=== PATIENT | female | born 1965 ===

== ENCOUNTER 2025-04-22 09:01 | Outpatient (OUT) | payer BC, SELFPAY ==
--- NOTE | 2025-04-22 | XR_ITS ---
The [address] [address] Patient Name: LANCE CROOK MRN: [id number] date: 1965 Sex: F Assigned Patient Location: [facility] Current Patient Location: [facility] Accession/Order Number: [id number] Exam Date: 04/22/2025 11:20 Report Date: 04/22/2025 11:55 At the request of: ADAL MCDERMOTT DO Procedure: XR shoulder LT min 2V LEFT SHOULDER - 3 views CLINICAL HISTORY: Follow-up Fracture Of Glenoid Cavity and Neck Of Scapula. Pain and decreased range of motion COMPARISON: None AP, Y and Grashey views were obtained. There is osteopenia. There is a cleft and hypertrophy at the inferior aspect of the glenoid which may be the reported fracture. The bony structures are otherwise intact. No dislocation is seen. There is minimal hypertrophy at the acromioclavicular joint and sclerosis of greater tuberosity. There are no significant soft tissue abnormalities. XR/XR shoulder LT min 2V IMPRESSION: BONY CHANGES AT THE INFERIOR GLENOID WHICH MAY RELATE TO THE REPORTED FRACTURE. THERE ARE NO PRIORS FOR COMPARISON. OSTEOPENIA AND MINOR DEGENERATIVE CHANGE. Impression dictated by: Malika Sethi M.D. 04/22/2025 11:55 AM Dictation Location: [place] [address] Electronically authenticated by: [id number] Y Date: 04/22/2025 11:55
--- OUTSIDE RECORDS SUMMARY | 2025-04-22 09:04 | XMS_ITS | Clinical Summary ---
Author Organization [facility] tem Address [facility] [address] [place] [address] Care Team Providers Care Chipping Machine Operator Name Role Phone Services, [facility] Primary Care Provider Allergies No known active allergies Medications MedicationSigDispense QuantityRefillsLast FilledStart DateEnd DateStatus spironolacton-hydroCHLOROthiaz (ALDACTAZIDE) 25-25 mg per tablet Take 1 tablet by mouth in the morning.2Active fluticasone propionate (FLONASE) 50 mcg/actuation nasal spray Administer 2 sprays into each nostril as needed for allergies or rhinitis. 08/31/2021ctive atorvastatin (LIPITOR) 10 mg tablet Indications:hyperlipidemiaTake 1 tablet (10 mg total) by mouth nightly Indications: excessive fat in the blood.Active Active Problems ProblemNoted DateDiagnosed NoznCybfybvwkvs49/05/2022 Encounters DateTypeDepartmentCare LooySapvjrtjrud68/15/2025 12:13 AM EDT - 03/27/2025 5:51 AM EDTEmergency [facility] [address] [place] [address] Renetta Barroso MD Anterior shoulder dislocation, left, initial encounter (Primary Dx); Bankart lesion of left shoulder, initial encounter Discharge Disposition: Home03/26/2025Travelfrom Last 3 Months Family History Medical HistoryRelationNameCommentsHypertensionBrotherSleep apneaBrotherSleep apneaDaughterAlcohol abuseFatherCirrhosisFatherCOPDMotherCoronary artery disease MotherHeart attackMotherHeart diseaseMotherHypertensionMotherBreast cancerNeg Hx RelationNameStatusCommentsBrotherDaughterAliveFatherDeceasedMotherAlive Social History Tobacco UseTypesPacks/DayYears UsedDateSmoking Tobacco: NeverSmokeless Tobacco: NeverAlcohol UseStandard Drinks/WeekCommentsNot Currently0 (1 standard drink = 0.6 oz pure alcohol)ChildcareAnswerDate YuzacfreNonlqbojyQkertbu07/12/2019 EmploymentAnswerDate VgqvyvfwDockgdsksdZxljhug88/12/2019Hunger ScreeningAnswer Date RecordedWithin the past 12 months we worried whether our food would run out before we got money to buy more.Never True03/26/2025Within the past 12 months the food we bought just didn't last and we didn't have money to get more.Never True03/26/2025Purpose - LifeAnswerDate RecordedPurpose and direction in life Apsyuqy72/11/2021CommentsNoSex and Gender InformationValueDate Recorded Sex Assigned at BirthNot on fileLegal XkzHmqgxb92/06/2015 11:39 AM EDTGender IdentityNot on fileSexual OrientationNot on file Last Filed Vital Signs Vital SignReadingTime TakenCommentsBlood Jymuxxbx792/6803/27/2025 4:45 AM EDT Obljh251103/27/2025 5:37 AM QTMUwbsnjhlkjg65.8 ??C (98.2 ??F)03/27/2025 12:14 AM EDTRespiratory Iaby7171 5:37 AM EDTOxygen Oykjqmrqdc67%03/27/2025 5:37 AM EDTInhaled Oxygen Concentration--Hjlpqu83.9 kg (174 lb)03/26/2025 11:46 PM GXGPghaas620.9 cm (4' 11 )03/26/2025 11:46 PM EDTBody Mass Index35.141 11:46 PM EDT Plan of Treatment Health MaintenanceDue DateLast DoneCommentsDepression Wprnamsig03/11/1979Adult BMI Follow Up Plan1985DTaP,Tdap and Td Vaccines (1 - Tdap)12/11/1986Zoster (Shingles) Vaccine (1 of 2)2017COVID-19 Vaccine ( - season) 505/09/2020, 09/23/2020Influenza Dikkton13/Pap Smear /, 05/05/2022dult BMI Miwxdkacl54Tobacco Adogcreal19 Medical Devices Not on file Procedures Procedure NamePriorityDate/TimeAssociated DiagnosisCommentsCT SHOULDER LT WO DHHMDOJB78/15/2025 5:09 AM EDT PM ED PROCEDURAL YJVXNRSTDclxbpf73/15/2025 4:30 AM EDT XR SHOULDER LT 1 XJFGUK1103/27/2025 4:27 AM EDT XR SHOULDER LT MIN 2 LHHITJZ83/15/2025 1:08 AM EDT XR HUMERUS LT MIN 2 HUQJDMU59/15/2025 1:06 AM EDT PM ED CRITICAL DSZBVtfdjjd55/15/2025 12:25 AM EDT PAP IGXRGTqblvru71/23/2022 6:22 AM EST Encounter for screening for malignant neoplasm of cervix Encounter for screening for human papillomavirus (HPV) from Last 3 Months or Most Recently Relevant to Health Maintenance Results * CT shoulder left without contrast (03/27/2025 5:09 AM EDT)Anatomical Region LateralityModalityMSK, Upper Extremities, Shoulder, MSK CoveraLeftComputed TomographySpecimen (Source)Anatomical Location / LateralityCollection Method / VolumeCollection TimeReceived Time03/27/2025 5:11 AM EDT Narrative 03/27/2025 5:16 AM EDT History: Dislocation Exam/Technique: ??Thin axial images of the left shoulder were obtained. Study was supplemented by sagittal and coronal reconstructed images. Automated exposure control was utilized. Comparison: ??Comparison made to a plain film examination performed earlier today Findings: ??The humeral head is now in normal anatomic position. No dislocation is seen. There is fragmentation of the inferior aspect of the glenoid consistent with a Bankart fracture. Irregularity of the humeral head is consistent with a Hill- Sachs deformity. The remainder the visualized osseous structures are intact. IMPRESSION: ?? * ??Fragmentation of the inferior aspect of the glenoid consistent with a Bankart fracture * ??Irregularity of the humeral head consistent with a Hill-Sachs deformity, the age of which is uncertain. * ??No evidence of residual dislocation. ?? Finalized by Elijah Sparrow MD on 03/27/2025 5:16 AM Procedure Note Elijah Sparrow MD - 03/27/2025 History: Dislocation Exam/Technique: Thin axial images of the left shoulder were obtained.Study was supplemented by sagittal and coronal reconstructed images.Automated exposure control was utilized. Comparison: Comparison made to a plain film examination performed earliertoday Findings: The humeral head is now in normal anatomic position. Nodislocation is seen. There is fragmentation of the inferior aspect of the glenoid consistentwith a Bankart fracture. Irregularity of the humeral head is consistentwith a Hill- Sachs deformity. The remainder the visualized osseousstructures are intact. IMPRESSION: * Fragmentation of the inferior aspect of the glenoid consistent with aBankart fracture * Irregularity of the humeral head consistent with a Hill-Sachsdeformity, the age of which is uncertain. * No evidence of residual dislocation. Finalized by Elijah Sparrow MD on 03/27/2025 5:16 AM Authorizing ProviderResult TypeResult StatusStacy Dharmesh MONTANO CT ORDERABLESFinal Result * Procedural Sedation (03/27/2025 4:30 AM EDT) Narrative Renetta Barroso MD - 03/27/2025 4:30 AM EDT Renetta Barroso MD 03/29/2025 2:42 PM Procedural Sedation Date/Time: 03/27/2025 4:30 AM Performed by: Renetta Barroso MD Authorized by: Renetta Barroso MD ?? Written consent obtained?: Yes ?? Risks and benefits: Risks, benefits, complications and alternatives were discussed ?? Consent given by: ??Patient Patient states understanding of procedure being performed: Yes ?? Patient's understanding of procedure matches consent: Yes ?? Procedure consent matches procedure scheduled: Yes ?? Relevant documents present and verified: Yes ?? Test results available and properly labeled: Yes ?? Site marked: No ?? Imaging studies available: Yes ?? Patient identity confirmed: ??Verbally with patient and arm band Time out: Immediately prior to the procedure a time out was called ?? Consent: ??Consent given by: ??Patient Indications: Sedation type: moderate (conscious) sedation Pre-sedation assessment: ??ASA classification: class 2 - patient with mild systemic disease ?Mallampati score: ??II - soft palate, uvula, fauces visible Procedure details (see MAR for exact dosages): ??Sedation start time: ??03/27/2025 4:13 AM ??Preoxygenation: ??Nasal cannula ??Sedation: ??Etomidate ??Analgesia: ??None ??Intra-procedure monitoring: ??Blood pressure monitoring, traffic monitor specialist, continuous capnometry, continuous pulse oximetry, frequent LOC assessments and frequent vital sign checks ??Intra-procedure events: none ?Sedation end time: ??03/27/2025 4:33 AM ??Total sedation time (minutes): ??20 Post-procedure details: ??Attendance: Constant attendance by certified staff until patient recovered ?Patient tolerance: ??Tolerated well, no immediate complications Authorizing ProviderResult TypeResult StatusStacy Dharmesh HDZNURSING TASKSFinal Result * X-ray shoulder left 1 view (03/27/2025 4:27 AM EDT)Anatomical RegionLaterality ModalityMSK, Upper Extremities, ShoulderLeftComputed RadiographySpecimen (Source)Anatomical Location / LateralityCollection Method / VolumeCollection TimeReceived Time03/27/2025 4:32 AM EDT Narrative 03/27/2025 4:37 AM EDT XR SHOULDER LT 1 VW HISTORY: Left shoulder pain, dislocation COMPARISON: 03/27/2025 TECHNIQUE: Single view of the left shoulder obtained. IMPRESSION: Interval reduction of anterior dislocation of humeral head. Mild inferior subluxation of the humeral head. Irregularity of the greater tuberosity of the humerus which may represent a Hill-Sachs fracture. Approved by Resident Rebekah Howell DO ??on 03/27/2025 4:32 AM Elijah Dolan MD have personally reviewed the image(s) and agree with and/or edited the report Finalized by Elijah Sparrow MD on 03/27/2025 4:37 AM Procedure Note Elijah Sparrow MD - 03/27/2025 XR SHOULDER LT 1 VW HISTORY: Left shoulder pain, dislocation COMPARISON: 03/27/2025 TECHNIQUE: Single view of the left shoulder obtained. IMPRESSION: Interval reduction of anterior dislocation of humeral head. Mild inferior subluxation of the humeral head. Irregularity of the greater tuberosity ofthe humerus which may represent a Hill-Sachs fracture. Approved by Resident Rebekah Howell DO on 03/27/2025 4:32 AM Elijah Dolan MD have personally reviewed the image(s) and agreewith and/or edited the report Finalized by Elijah Sparrow MD on 03/27/2025 4:37 AM Authorizing ProviderResult TypeResult StatusStacy Dharmesh [facility] DIAGNOSTIC IMAGING ORDERABLESFinal Result * X-ray shoulder left minimum 2 views (03/27/2025 1:08 AM EDT)Anatomical Region LateralityModalityMSK, Upper Extremities, ShoulderLeftComputed Radiography Specimen (Source)Anatomical Location / LateralityCollection Method / Volume Collection TimeReceived Time03/27/2025 1:29 AM EDT Narrative 03/27/2025 1:30 AM EDT History: Pain after falling Exam/Technique: ??2 views of the left shoulder were obtained. Comparison: ??11/03/2015 Findings: ??There is anterior dislocation of the humeral head. A definite fracture is not seen. Theremainder the visualized osseous structures are intact. IMPRESSION: ??Anterior dislocation of the left humeral head. ?? Finalized by Elijah Sparrow MD on 03/27/2025 1:30 AM Procedure Note Elijah Sparrow MD - 03/27/2025 History: Pain after falling Exam/Technique: 2 views of the left shoulder were obtained. Comparison: 11/03/2015 Findings: There is anterior dislocation of the humeral head. A definitefracture is not seen. The remainder the visualized osseous structures areintact. IMPRESSION: Anterior dislocation of the left humeral head. Finalized by Elijah Sparrow MD on 03/27/2025 1:30 AM Authorizing ProviderResult TypeResult StatusStacy [facility] DIAGNOSTIC IMAGING ORDERABLESFinal Result * X-ray humerus left minimum 2 views (03/27/2025 1:06 AM EDT)Anatomical Region LateralityModalityUpper Extremities, MSK, HumerusLeftComputed Radiography Specimen (Source)Anatomical Location / LateralityCollection Method / Volume Collection TimeReceived Time03/27/2025 1:22 AM EDT Narrative 03/27/2025 1:28 AM EDT XR HUMERUS LT MIN 2 VWS HISTORY: Fall, left shoulder pain COMPARISON: 11/03/2015 TECHNIQUE: 2 views of left humerus obtained. FINDINGS: Anterior inferior displacement of the humeral head. No acute fracture. The osseous structures are well mineralized. IMPRESSION: ?? Anterior dislocation of the humeral head. No convincing acute fracture. Approved by Resident Rebekah Howell DO ??on 03/27/2025 1:22 AM Elijah Dolan MD have personally reviewed the image(s) and agree with and/or edited the report Finalized by Elijah Sparrow MD on 03/27/2025 1:28 AM Procedure Note Elijah Sparrow MD - 03/27/2025 XR HUMERUS LT MIN 2 VWS HISTORY: Fall, left shoulder pain COMPARISON: 11/03/2015 TECHNIQUE: 2 views of left humerus obtained. FINDINGS: Anterior inferior displacement of the humeral head. No acute fracture. The osseous structures are well mineralized. IMPRESSION: Anterior dislocation of the humeral head. No convincing acute fracture. Approved by Resident Rebekah Howell DO on 03/27/2025 1:22 AM I, Elijah Sparrow MD have personally reviewed the image(s) and agreewith and/or edited the report Finalized by Elijah Sparrow MD on 03/27/2025 1:28 AM Authorizing ProviderResult TypeResult StatusSttarik Barroso MDIMG DIAGNOSTIC IMAGING ORDERABLESFinal Result * Critical Care (03/27/2025 12:25 AM EDT) Renetta Green MD - 03/27/2025 12:25 AM EDT Renetta Barroso MD 03/29/2025 2:42 PM Critical Care Performed by: Renetta Barroso MD Authorized by: Renetta Barroso MD ?? Critical care provider statement: ??Critical care time (minutes): ??30 ??Critical care start time: ??03/27/2025 4:00 AM ??Critical care end time: ??03/27/2025 4:30 AM ??Critical care time was exclusive of: ??Separately billable procedures and treating other patients ??I assumed direction of critical care for this patient from another provider in my specialty: yes ?? Authorizing ProviderResult TypeResult StatusSttarik Barroso MDPROCEDURE/MINOR SURGICAL ORDERABLESFinal Result * Pap Smear (05/05/2022 6:22 AM EST)Specimen (Source)Anatomical Location / LateralityCollection Method / VolumeCollection TimeReceived Time05/05/2022 6:22 AM EST05/05/2022 6:23 AM EST Narrative COPATH - 05/18/2022 10:31 AM EST [facility] ? [address] [facility] ? [place] [address] ? Gynecologic Cytology Consultation ? Patient Name:EVELINA CROOK:1965 (Age: 56)Gender:FTaken:2Reported:2Physician(s):Nasim Luna M.D. ([phone])Copy To: Rec. #:[id number]: #[id number] Final Cytologic Interpretation ThinPrep Pap Test (Not otherwise specified): Satisfactory for evaluation. NEGATIVE FOR INTRAEPITHELIAL LESION OR MALIGNANCY. The cytologic changes of atrophy are noted. ?? lisbeth/05/18/2022 Interpretation performed at [facility] [employer] [address] [place] [id number], License number: [id number]. Electronically Signed Out By ?ERNESTINE Lopez(ASCP) Date of Last Menstrual Period: ? (None Given) Other Clinical Conditions: Z12.4 Screening for malignant neoplasm of cervix Z11.51 Screening for HPV Source of Specimen ??ThinPrep Pap Test (Not otherwise specified) ? Thin Prep Pap (ORGANIZATIONAL DEVELOPMENT MANAGER) Fee Code(s): ?? G0145 Authorizing ProviderResult TypeResult StatusAbeer [facility] MDPATHOLOGY/CYTOLOGY ORDERABLESFinal ResultPerforming OrganizationAddressCity/State/ZIP CodePhone Number COPATH from Last 3 Months or Most Recently Relevant to Health Maintenance Insurance * Guarantor: Evelina Crook TypeRelation to PatientDate of BirthPhone Billing AddressPersonal/DzclfyYzex59/11/1965[address] [place] [address] * Guarantor: Evelina Crook TypeRelation to PatientDate of BirthPhone Billing TueblmoRcfnpaBscd1965 [address] [place] [address] Advance Directives TypeDate RecordedPatient RepresentativeExplanationAdvance Jihcpbmsj07/15/2025 5:53 AM Care Teams Team MemberRelationshipSpecialtyStart DateEnd Date Services, [facility] [address] [place], [place] PCP - GeneralFamily Medicine06/27/24
== END 2025-04-22 09:02 | disposition home or self-care (01) ==
LOC: RAD 09:01
PROVIDERS: PCP Nurse Practitioner Family; Visit Provider Orthopaedic Surgery Orthopaedic Trauma
DX: S42.142D Displaced fracture of glenoid cavity of scapula, left shoulder, subsequent encounter for fracture with routine healing (principal); S42.152D Displaced fracture of neck of scapula, left shoulder, subsequent encounter for fracture with routine healing
CPT/HCPCS: 73030

== ENCOUNTER 2025-06-03 08:14 | Outpatient (OUT) | payer MEDICAID, SELFPAY ==
--- OUTSIDE RECORDS SUMMARY | 2025-05-20 09:00 | XMS_ITS | Encounter Summary ---
Author Organization [facility] Healthcare Address [address] [facility] [place] [address] Care Team Providers Care Furnace Operator Oil Or Gas Name Role Phone Unavailable Primary Care Provider Unavailabl e Reason for Visit * Rehabilitation - Outpatient (Routine) - AuthorizedSpecialtyDiagnoses / ProceduresReferred By ContactReferred To ContactPhysical Therapy Diagnoses Unspecified dislocation of right shoulder joint, initial encounter Displaced fracture of glenoid cavity of scapula, unspecified shoulder, initial encounter for closedfracture Other displaced fracture of upper end of right humerus, initial encounter for closed fracture Procedures SD PHYSICAL THERAPY EVALUATION HIGH COMPLEX 45 MINS Andres Hannon MD [address] [address] Phone: tel: fax: Lucio Gabriel, PT [address] [place] [address] Phone: tel: fax: Referral IDStatusReasonStart DateExpiration DateVisits RequestedVisits [id number]/[id number]/[id number] Encounter Details DateTypeDepartmentCare Team (Latest Contact Info)Robetjgseer36/08/2025 9:00 AM ESTTreatment [facility] [address] [place] [address] Desiree Alcocer PTA Acute pain of left shoulder (Primary Dx); Instability of left shoulder joint Social History Tobacco UseTypesPacks/DayYears UsedDateSmoking Tobacco: Never Assessed CommentsUnknownSex and Gender InformationValueDate RecordedSex Assigned at Not on fileLegal ZfcSivqvo33/11/2025 10:14 AM ESTGender IdentityNot on file Sexual OrientationNot on filedocumented as of this encounter Progress Notes * Desiree Alcocer, GRAB JACK WORKER - 05/20/2025 9:00 AM EST Images from the original note were not included. Physical Therapy Physical Therapy Treatment Visit Patient Name: Evelina Renae Today's Date: 05/20/2025 Encounter Diagnoses Name Primary? Acute pain of left shoulder Yes Instability of left shoulder joint Visit number: 7 Time in: 8:52 am Time out: 9:55 am Sup time: 44 min Total time: 54 min Subjective Evelina Renae 59 y.o. female presents to physical therapy w/ chief c/o L shoulder pain. Mechanism of Onset: trip fall, dislocation/FX 03/26/25 tripped over granddaughter in dark at home, sling until ~1 week prior to IE also has hx of dislocation > 10 years ago. Current deficits: pain, weakness, decreased RO/flexibility Pain: 4/10 pain arriving today, states its been more irritable, due to cold temperatures Location: mod to severe at times Aggravating Factors: reaching overhead, out to side, behind back, ADLs/self care, sleep Relieving factors: rest Imaging: Extracurricular/Leisure Activities: active adult when well Precautions: 2nd dislocation of same shoulder Objective Quick DASH= 40% impaired at IE R shoulder AROM: flex to 90, abd to 70, ER WNL, IR/ext behind back to L3 PROM flex to 140, abd t0 90 pain limiting R shoulder strength: 3+/5 grossly pain with all Treatment Interventions Manual Therapy:x 10 min PROM, gentle stretching, LA distraction tolerated well Therapeutic Exercise:x 34 min per ELISA grid, ROM, flexibility, strength, endurance, postural work Modalities:x 10 min CP to L shoulder post session Assessment/Plan R shoulder pain, decreased ROM, weakness, increased difficulty with ADLs/self care, sleep, decreased QOL Goals: Pt will demo AROM grossly WNL all planes pain free. Pt will demo shoulder strength grossly 5/5 MMT pain free all planes Pt will be ind with HEP for maintenance and able to avoid further imaging/intervention at DC from PT Pt is progressing well with AA/AROM and stretches. PROM min restricted in all planes, only min discomfort reported with end ranges. Finished with ice today for pain relief. Continue as able. Follow up 06/03/25. Cosigned by Lucio Gabriel, PT at 05/20/2025 11:02 AM EST documented in this encounter Plan of Treatment DateTypeDepartmentCare Team (Latest Contact Info)Fmurcreagry28/22/2025 8:30 AM ESTTreatment [facility] [address] [place] [address] Yady Layne, GRAB JACK WORKER [address] [place] [address] 06/05/2025 9:00 AM ESTTreatment [facility] [address] [place] [address] Lucio Gabriel, PT [address] [place] [address] 06/10/2025 9:00 AM ESTTreatment [facility] [address] [place] [address] Yady Layne, GRAB JACK WORKER [address] [place] [address] 06/12/2025 9:00 AM ESTTreatment [facility] [address] [facility] [place] [id number] Lucio Gabriel, PT [address] [place] [address] documented as of this encounter Visit Diagnoses Diagnosis Acute pain of left shoulder- Primary Instability of left shoulder joint documented in this encounter
--- OUTSIDE RECORDS SUMMARY | 2025-05-22 09:30 | XMS_ITS | Encounter Summary ---
Author Organization [facility] Healthcare Address [address] [facility] [place] [address] Care Team Providers Care Pharmacy Order Entry Technician Name Role Phone Unavailable Primary Care Provider Unavailabl e Reason for Visit * Rehabilitation - Outpatient (Routine) - AuthorizedSpecialtyDiagnoses / ProceduresReferred By ContactReferred To ContactPhysical Therapy Diagnoses Unspecified dislocation of right shoulder joint, initial encounter Displaced fracture of glenoid cavity of scapula, unspecified shoulder, initial encounter for closedfracture Other displaced fracture of upper end of right humerus, initial encounter for closed fracture Procedures [place] PHYSICAL THERAPY EVALUATION HIGH COMPLEX 45 MINS Andres Hannon MD [address] [place] [address] Phone: tel: fax: Lucio Gabriel, PT [address] [place] [address] Phone: tel: fax: Referral IDStatusReasonStart DateExpiration DateVisits RequestedVisits [id number]/11/202512/[id number] Encounter Details DateTypeDepartmentCare Team (Latest Contact Info)Dgpktbfbyiz72/10/2025 9:30 AM ESTTreatment [facility] [address] [place] [address] Lucio Gabriel, PT [address] [place], [place] [phone] Acute pain of left shoulder (Primary Dx); Instability of left shoulder joint Social History Tobacco UseTypesPacks/DayYears UsedDateSmoking Tobacco: Never Assessed CommentsUnknownSex and Gender InformationValueDate RecordedSex Assigned at Not on fileLegal RchCzcnnx89/11/2025 10:14 AM ESTGender IdentityNot on file Sexual OrientationNot on filedocumented as of this encounter Progress Notes * Lucio Hunter Nery, PT - 05/22/2025 9:30 AM EST Images from the original note were not included. Physical Therapy Physical Therapy Treatment Visit Patient Name: Evelina Renae Today's Date: 05/22/2025 Encounter Diagnoses Name Primary? Acute pain of left shoulder Yes Instability of left shoulder joint Visit number: 8 Time in: 9:00 am Time out: 9:55 am Sup time: 40 min Total time: 55 min Subjective Evelina Renae 59 y.o. female [...] pain with all Treatment Interventions Manual Therapy:x 8 min PROM, gentle stretching, LA distraction tolerated well Therapeutic Exercise:x 32 min per ELISA grid, ROM, flexibility, strength, endurance, postural work. Added 1# to ROWs/LAEs, IR/ER no issues. Modalities:x 10 min CP to L shoulder [...] relief. Continue as able. Follow up 06/03/25. documented in this encounter Plan of Treatment DateTypeDepartmentCare Team (Latest Contact Info)Luzguxrtybv70/22/2025 8:30 AM ESTTreatment [facility] [address] [place] [address] Yady Layne, SPRING COILING MACHINE SETTER [address] [place] [address] 06/05/2025 9:00 AM ESTTreatment [facility] [address] [place] [address] Lucio Gabriel, PT [address] [place] [address] 06/10/2025 9:00 AM ESTTreatment [facility] [address] [place] [address] Yady Layne, SPRING COILING MACHINE SETTER [address] [place] [address] 06/12/2025 9:00 AM ESTTreatment [facility] [address] [place] [address] Lucio Gabriel, PT [address] [place] [address] documented as of this encounter Visit Diagnoses Diagnosis Acute pain of left shoulder- Primary Instability of left shoulder joint documented in this encounter
--- OUTSIDE RECORDS SUMMARY | 2025-05-29 09:30 | XMS_ITS | Encounter Summary ---
Author Organization [facility] Healthcare Address [address] [facility] [place] [address] Care Team Providers Care Professor Of Forest Planning Name Role Phone Unavailable Primary Care Provider Unavailabl e Reason for Visit * Rehabilitation - Outpatient (Routine) - AuthorizedSpecialtyDiagnoses / ProceduresReferred By ContactReferred To ContactPhysical Therapy Diagnoses Unspecified dislocation of right shoulder joint, initial encounter Displaced fracture of glenoid cavity of scapula, unspecified shoulder, initial encounter for closedfracture Other displaced fracture of upper end of right humerus, initial encounter for closed fracture Procedures [place] PHYSICAL THERAPY EVALUATION HIGH COMPLEX 45 MINS Andres Hannon MD [address] [place] [address] Phone: tel: fax: Lucio Gabriel, PT [address] [place] [address] Phone: tel: fax: Referral IDStatusReasonStart DateExpiration DateVisits RequestedVisits [id number]/11/202512/[id number] Encounter Details DateTypeDepartmentCare Team (Latest Contact Info)Buctzqtosbr70/17/2025 9:30 AM ESTTreatment [facility] [address] [place] [phone] Yady Layne PTA [address] [place], [place] [phone] Acute pain of left shoulder (Primary Dx); Instability of left shoulder joint Social History Tobacco UseTypesPacks/DayYears UsedDateSmoking Tobacco: Never Assessed CommentsUnknownSex and Gender InformationValueDate RecordedSex Assigned at Not on fileLegal DvxUqqelk59/11/2025 10:14 AM ESTGender IdentityNot on file Sexual OrientationNot on filedocumented as of this encounter Progress Notes * Yady Layne, REINFORCING IRON WORKER HELPER - 05/29/2025 9:30 AM EST Images from the original note were not included. Physical Therapy Physical Therapy Treatment Visit Patient Name: Evelina Renae Today's Date: 05/29/2025 Encounter Diagnoses Name Primary? Acute pain of left shoulder Yes Instability of left shoulder joint Visit number: 9 Time in: 9:21 am Time out: 10:12 am Sup time: 41 min Total time: 51 min Subjective Evelina Renae 60 y.o. female presents to physical therapy w/ chief c/o L shoulder pain. Mechanism of Onset: trip fall, dislocation/FX 03/26/25 tripped over granddaughter in dark at home, sling until ~1 week prior to IE also has hx of dislocation > 10 years ago. Current deficits: pain, weakness, decreased RO/flexibility Pain: min upon arrival Location: mod to severe at times Aggravating [...] stretching, LA distraction tolerated well Therapeutic Exercise:x 33 min per ELISA grid, ROM, flexibility, strength, [...] 06/03/25. Cosigned by Lucio Gabriel, PT at 05/29/2025 10:58 AM EST documented in this encounter Plan of Treatment DateTypeDepartmentCare Team (Latest Contact Info)Gnsjffjymqm39/22/2025 8:30 AM ESTTreatment [facility] [address] [facility] [place] [address] Yady Layne, REINFORCING IRON WORKER HELPER [address] [place] [address] 06/05/2025 9:00 AM ESTTreatment [facility] [address] [facility] [address] Lucio Gabriel, PT [address] [facility] [address] 06/10/2025 9:00 AM ESTTreatment [facility] [place] [address] [facility] [address] Yady Layne, REINFORCING IRON WORKER HELPER [address] [place] [address] 06/12/2025 9:00 AM ESTTreatment [facility] [place] [address] [facility] [address] Lucio Gabriel, PT [address] [place] [address] documented as of this encounter Visit Diagnoses Diagnosis Acute pain of left shoulder- Primary Instability of left shoulder joint documented in this encounter
--- NOTE | 2025-06-03 | XR_ITS ---
The [address] [address] Patient Name: LANCE CROOK MRN: [id number] date: 1965 Sex: F Assigned Patient Location: [facility] Current Patient Location: [facility] Accession/Order Number: [id number] Exam Date: 06/03/2025 10:35 Report Date: 06/03/2025 11:43 At the request of: ADAL MCDERMOTT DO Procedure: XR shoulder LT min 2V LEFT SHOULDER - 4 views CLINICAL HISTORY: Dislocation Of Left Shoulder Joint COMPARISON: 04/22/2025 AP, Y, axillary and Grashey views were obtained. There is osteopenia. Minor degenerative change is seen at the acromioclavicular joint and greater tuberosity. There are similar bony changes along the inferior margin of the glenoid which could be fracture related to the reported dislocation. There is no new fracture. No dislocation is seen. There are no significant soft tissue abnormalities. XR/XR shoulder LT min 2V IMPRESSION: STABLE APPEARANCE OF THE SHOULDER. Impression dictated by: Malika Sethi M.D. 06/03/2025 11:43 AM Dictation Location: [employer] Electronically authenticated by: [id number] Y Date: 06/03/2025 11:43
--- OUTSIDE RECORDS SUMMARY | 2025-06-03 08:17 | XMS_ITS | Clinical Summary ---
Author Organization [facility] Address [address] [place] [address] Care Team Providers Care Senior Mobile Developer Name Role Phone Unavailable Primary Care Provider Unavailabl e Active Problems ProblemNoted DateDiagnosed DateInstability of left shoulder joint5Acute pain of left pyxyovvb81/17/2025 Encounters DateTypeDepartmentCare HhvbRezomrjiiup61/17/2025 9:30 AM ESTTreatment [facility] [address] [place] [address] Yady Layne, DENISE Acute pain of left shoulder (Primary Dx); Instability of left shoulder joint05/29/2025amboo flowsheet [facility] [address] [place] [address] Yady Layne PTA 05/29/20254961Ciddcj37/10/2025 9:30 AM ESTTreatment [facility] [address] [place] [address] Lucio Gabriel, PT Acute pain of left shoulder (Primary Dx); Instability of left shoulder joint05/22/2025amboo flowsheet [facility] [address] [place] [address] Lucio Gabriel, PT 05/22/20255461Fyccoe90/08/2025 9:00 AM ESTTreatment [facility] [address] [place] [address] Desiree Alcocer, SANDBLASTER SUPERVISOR Acute pain of left shoulder (Primary Dx); Instability of left shoulder joint05/20/2025amb flowsheet [facility] [address] [place] [address] Desiree Alcocer, SANDBLASTER SUPERVISOR 05/20/20252811Kqmkyr81/03/2025 9:30 AM ESTTreatment [facility] [address] [place] [address] Yady Layne, SANDBLASTER SUPERVISOR Acute pain of left shoulder (Primary Dx); Instability of left shoulder joint05/15/2025[facility] flowsheet [facility] [address] [place] [address] Yady Layne, SANDBLASTER SUPERVISOR 05/15/20257688Pfjxjm80/01/2025 9:30 AM ESTTreatment [facility] [address] [place] [address] Lucio Gabriel, PT Acute pain of left shoulder (Primary Dx); Instability of left shoulder joint05/13/2025[facility] flowsheet [facility] [address] [place] [address] Lucio Gabriel, PT 05/13/20254019Qxihqq79/26/2025 8:30 AM ESTTreatment [facility] [address] [place] [address] Yady Layne, SANDBLASTER SUPERVISOR Acute pain of left shoulder (Primary Dx); Instability of left shoulder joint05/08/2025[facility] flowsheet [facility] [address] [place] [address] Yady Layne, SANDBLASTER SUPERVISOR 05/08/20251206Urrrei70/24/2025 9:30 AM ESTTreatment [facility] [address] [place] [address] Lucio Gabriel, PT Acute pain of left shoulder (Primary Dx); Instability of left shoulder joint05/06/2025[facility] flowsheet [facility] [address] [place] [address] Lucio Gabriel, PT 05/06/20252616Vicmjw93/19/2025 9:30 AM ESTTreatment [facility] [address] [place] [address] Lucio Gabriel, PT Acute pain of left shoulder (Primary Dx); Instability of left shoulder joint05/01/2025amboo flowsheet [facility] [address] [place] [address] Lucio Gabriel, PT 05/01/20256805Kzxxrs09/17/2025 12:00 PM ESTEvaluation [facility] [address] [place] [address] Lucio Gabriel, PT Acute pain of left shoulder (Primary Dx); Instability of left shoulder joint04/29/2025Plan of Care Documentation [facility] [address] [place] [address] 04/29/2025amb flowsheet [facility] [address] [place] [address] Lucio Gabriel, PT 04/29/2025Travelfrom Last 3 Months Social History Tobacco UseTypesPacks/DayYears UsedDateSmoking Tobacco: Never Assessed CommentsUnknownSex and Gender InformationValueDate RecordedSex Assigned at Not on fileLegal CadQtalaw81/11/2025 10:14 AM ESTGender IdentityNot on file Sexual OrientationNot on file Plan of Treatment DateTypeDepartmentCare Team (Latest Contact Info)Qlldhxabrxx02/22/2025 8:30 AM ESTTreatment [facility] [address] [place] [address] Yady Layne PTA [address] [place] [address] 06/05/2025 9:00 AM ESTTreatment [facility] [address] [place] [address] Lucio Gabriel, PT [address] [facility] [place] [address] 06/10/2025 9:00 AM ESTTreatment [facility] [address] [place] [address] Yady Layne, SANDBLASTER SUPERVISOR [address] [place] [address] 06/12/2025 9:00 AM ESTTreatment [facility] [address] [place] [address] Lucio Gabriel, PT [address] [facility] [place] [address] Health MaintenanceDue DateLast DoneCommentsCT Kwpbdrqbgxxb1967Colonoscopy 1965FIT1967FOBT1965 7857Ogdzdeykbxzgs1967Pap Smear1988 Cervical Cancer Vztgselpj98/11/1997HPV/Uworqv6105/23/1997COVID-19 Vaccine ( season)505/09/2020, 09/23/2020Influenza Vaccine (#1)2025 05/27/20166899Gjzcsmksl06/20/66412507/02/2024, 06/25/2022, 12/03/2020, Additional history existsColorectal Cancer Lohqmxdxh67/24/2028FIT-DNA8008/06/2024, 12/29/2020neumococcal Vaccine: Pediatrics (0 to 5 Years) and At-Risk Patients (6 to 64 Years)Aged OutNo longer eligible based on patient's age to complete this topic Insurance * Guarantor: Michelle Renae TypeRelation to PatientDate of BirthPhone Billing AddressPersonal/GkqvjrSxlp1965 [address] [place] [address]
--- OUTSIDE RECORDS SUMMARY | 2025-06-03 08:17 | XMS_ITS | Encounter Summary ---
Author Organization [facility] Address [address] [place] [place] [address] Care Team Providers Care Cargo Mate Name Role Phone Unavailable Primary Care Provider Unavailabl e Encounter Details DateTypeDepartmentCare Team (Latest Contact Info)Yycqhnwolsv49/08/2025Travel Social History Tobacco UseTypesPacks/DayYears UsedDateSmoking Tobacco: Never Assessed CommentsUnknownSex and Gender InformationValueDate RecordedSex Assigned at Not on fileLegal LbkWqdrjx98/11/2025 10:14 AM ESTGender IdentityNot on file Sexual OrientationNot on filedocumented as of this encounter Plan of Treatment DateTypeDepartmentCare Team (Latest Contact Info)Facxwkanrmp61/22/2025 8:30 AM ESTTreatment [facility] [address] [place] [address] Yady Layne, CORPORATE PARALEGAL [address] [place] [address] 06/05/2025 9:00 AM ESTTreatment [facility] [address] [place] [address] Lucio Gabriel, PT [address] [place], [place] [address] 06/10/2025 9:00 AM ESTTreatment [facility] [address] [place] [address] Yady Layne, CORPORATE PARALEGAL [address] [place] [address] 06/12/2025 9:00 AM ESTTreatment [facility] [address] [place] [address] Lucio Gabriel, PT [address] [place] [address] documented as of this encounter Visit Diagnoses Not on filedocumented in this encounter
--- OUTSIDE RECORDS SUMMARY | 2025-06-03 08:17 | XMS_ITS | Encounter Summary ---
Author Organization [facility] Address [address] [place] [address] Care Team Providers Care Controls Design Engineer Name Role Phone Unavailable Primary Care Provider Unavailabl e Encounter Details DateTypeDepartmentCare Team (Latest Contact Info)Watdgzhchig27/17/2025Travel Social History Tobacco UseTypesPacks/DayYears UsedDateSmoking Tobacco: Never Assessed CommentsUnknownSex and Gender InformationValueDate RecordedSex Assigned at Not on fileLegal NkrXhjjyg62/11/2025 10:14 AM ESTGender IdentityNot on file Sexual OrientationNot on filedocumented as of this encounter Plan of Treatment DateTypeDepartmentCare Team (Latest Contact Info)Cbifdltetll71/22/2025 8:30 AM ESTTreatment [facility] [address] [place] [address] Yady Layne, LENS CLEANER [address] [place] [address] 06/05/2025 9:00 AM ESTTreatment [facility] [address] [place] [address] Lucio Gabriel, PT [address] [place], [place] [address] 06/10/2025 9:00 AM ESTTreatment [facility] [address] [place] [address] Yady Layne, LENS CLEANER [address] [place] [address] 06/12/2025 9:00 AM ESTTreatment [facility] [address] [place] [address] Lucio Gabriel, PT [address] [place] [address] documented as of this encounter Visit Diagnoses Not on filedocumented in this encounter
--- OUTSIDE RECORDS SUMMARY | 2025-06-03 08:17 | XMS_ITS | Encounter Summary ---
Author Organization [facility] Address [address] [place] [address] Care Team Providers Care Rn Clinical Research Name Role Phone Unavailable Primary Care Provider Unavailabl e Encounter Details DateTypeDepartmentCare Team (Latest Contact Info)Muhnwqewosa46/10/2025Travel Social History Tobacco UseTypesPacks/DayYears UsedDateSmoking Tobacco: Never Assessed CommentsUnknownSex and Gender InformationValueDate RecordedSex Assigned at Not on fileLegal QsdCnluva40/11/2025 10:14 AM ESTGender IdentityNot on file Sexual OrientationNot on filedocumented as of this encounter Plan of Treatment DateTypeDepartmentCare Team (Latest Contact Info)Beklwrbamrp63/22/2025 8:30 AM ESTTreatment [facility] [address] [place] [address] Yady Layne, GENERAL UTILITY WORKER [address] [place] [address] 06/05/2025 9:00 AM ESTTreatment [facility] [address] [place] [address] Lucio Gabriel, PT [address] [place], [place] [address] 06/10/2025 9:00 AM ESTTreatment [facility] [address] [place] [address] Yady Layne, GENERAL UTILITY WORKER [address] [place] [address] 06/12/2025 9:00 AM ESTTreatment [facility] [address] [place] [address] Lucio Gabriel, PT [address] [place] [address] documented as of this encounter Visit Diagnoses Not on filedocumented in this encounter
--- OUTSIDE RECORDS SUMMARY | 2025-06-03 08:17 | XMS_ITS | Patient Health Record ---
Author Organization [facility] vices Address [address] [place], [place] [address] Care Team Providers Care Subway Operator Name Role Phone RobbieRegina Primary Care Provider Brianna eJrrellcadenalexis Unavailable [phone] Melly Rose Unavailable [phone] Ivania Camarillo Unavailable [phone] Allergies No Known Allergies Results Component Value Reference Range Notes THYROID PROFILE III Reviewed date:10/18/2024 09:19:13 AM Interpretation: Performing Lab: Notes/Report: T4, TOTAL 8.8 4.5-12.0 ug/dL TSH2.440.270-4.200 uIU/mL Third trimester: 0.3 to 3.0 mIU/L UNLESS OTHERWISE INDICATED, ALL TESTING PERFORMED AT: [facility] [address] [place] [address] OPERATOR: ELA ARMANDO M.D. CLIA NUMBER [id number] CAP ACCREDITATION AUID [id number] The [place] [employer] (LAURA) recommends the following reference ranges for TSH levels during : First trimester: 0.1 to 2.5 mIU/L Second trimester: 0.2 to 3.0 mIU/L LIPID PANEL WITH REFLEX TO DIRECT LDL Reviewed date:10/18/2024 09:19:07 AM Interpretation: Performing Lab: Notes/Report:YJOAXSEFKVA619744-916 mg/dOMJDNYUCKHEHHC7242-290 mg/dLVLDL-CHOL, XLKERVRXRO59<30 mg/dLHDL-CHOL63>=50 mg/dLLDL-CHOL, LTLCAUAPBZ22<130 mg/dL ADULT LDL CHOLESTEROL CLASSIFICATION <100mg/dL Optimal 100-129mg/dL Near/Above Optimal 130-159mg/dL Borderline High >160mg/dL High Risk Desirable range <100 mg/dL for patients with CHD or diabetes and <70 mg/dL for diabetic patients with known heart disease. Direct LDL is recommended for patients with triglycerides >400. LDL/HDL1.5<4.1 LDL/HDL RATIO MALE FEMALE below average risk <2.3 <2.3 average risk <5.0 <4.1 moderate risk <7.1 <5.6 high risk >7.1 >5.6 CHOL/HDL2.72.0-4.5COMPREHENSIVE METABOLIC PANEL WITH GFR Reviewed date:10/18/2024 09:20:29 AM Interpretation: Performing Lab: Notes/Report:HIRIZMO9858-026 mg/xRWAP159-16 mg/dLCALCIUM9.98.6-10.5 mg/dL CREATININE, BLOOD0.930.51-1.15 mg/dLeGFR (2020 CKD-EPI)72>59 mL/min/1.28m0QEQICR 463351-043 mmol/LPOTASSIUM4.23.5-5.4 mmol/GIELXAVIZ76240-849 mmol/DWY02925-71 mmol/LANION TXG241-01 mmol/LT. BILIRUBIN0.5<1.3 mg/dLALK IDSB7395-578 U/L UVR-JTFG035-92 U/UFGO-CGZG411-55 U/LT. PROTEIN7.06.0-8.3 g/dLALBUMIN4.63.5-5.2 g/dLMAMM SCREENING BILATERAL W CAD Reviewed date:07/03/2024 12:01:39 PM Interpretation: Performing Lab: Notes/Report: RESULTS BELOW EVELINA CROOK 1965XR shoulder LT min 2V Reviewed date:04/23/2025 12:23:37 PM Interpretation: Performing Lab: Notes/Report: Source Facility: [place] [address] [place] [address] XRay Report Signed Patient: EVELINA CROOK MR#: [id number] : 1965 Acct:[id number] Age/Sex: 59 / F ADM Date: 04/22/25 Loc: [facility] Attending Dr: Adal Hannon D.O. Ordering Physician: Adal Hannon Date of Service: 04/22/25 Procedure(s): XR shoulder LT min 2V Accession Number(s): [id number] cc: Adal Hannon; Regina Avalos NP [place] [address] Patient Name: EVELINA CROOK MRN: [id number] date: 1965 Sex: F Assigned Patient Location: [facility] Current Patient Location: [facility] Accession/Order Number: [id number] Exam Date: 04/22/2025 11:20 Report Date: 04/22/2025 11:55 At the request of: ADAL HANNON DO Procedure: XR shoulder LT min 2V LEFT SHOULDER - 3 views CLINICAL HISTORY: Follow-up Fracture Of Glenoid Cavity and Neck Of Scapula. Pain and decreased range of motion COMPARISON: None AP, Y and Grashey views were obtained. There is osteopenia. There is a cleft and hypertrophy at the inferior aspect of the glenoid which may be the reported fracture. The bony structures are otherwise intact. No dislocation is seen. There is minimal hypertrophy at the acromioclavicular joint and sclerosis of greater tuberosity. There are no significant soft tissue abnormalities. XR/XR shoulder LT min 2V IMPRESSION: BONY CHANGES AT THE INFERIOR GLENOID WHICH MAY RELATE TO THE REPORTED FRACTURE. THERE ARE NO PRIORS FOR COMPARISON. OSTEOPENIA AND MINOR DEGENERATIVE CHANGE. Impression dictated by: Malika Sethi M.D. 04/22/2025 11:55 AM Dictation Location: [place] [address] Electronically authenticated by: [id number] Y Date: 04/22/2025 11:55 Dictated By: Malika Sethi M.D. Signed By: 04/22/25 1157 DD/ 1155 TD/TT: Boring Machine Operator Production:Bryan Reviewed date:08/13/2024 01:53:49 PM Interpretation: Performing Lab: Notes/Report: Cologuardnegative Reason For Referral No Information Medications Medication SIG (Take, Route, Frequency, Duration) Notes Start Date End Date Status Spironolactone-HCTZ 25-25 MG Tablet 1 ta blet Orally Once a day; Duration: 90 days ActiveAtorvastatin Calcium 10 MG Tablet1 tablet Orally Once a day; Duration: 90 daysActiveAspirin 325 MG Tablet1 tablet Orally Once a dayprnActive Social History Tobacco Use: Social History Observation Description Date Details (start date - stop date) Never Smoker NA - NA Sex Assigned At : Social History Observation Description Sex Assigned At Female Social History Social DeterminantsSocial InfoQuestionAnswerNotesPRAPAREDate Completed/Updated: 04/18/2025patient entered dataWhat is your current housing situation?I have housingpatient entered dataAre you worried about losing your housing?No patient entered dataWhat is the highest level of school that you have finished?More than high schoolpatient entered dataWhat is your current work situation?Otherwise unemployed but not seeking work (ex. student, retired, disabled, unpaid primary managed care liaison)patient entered dataIn the past year, have you or any family members you live with been unable to get any of the following when it was really needed? Check all that applyI do not have problems meeting my needsHas lack of transportation kept you from medical appointments, meetings, work or from getting things needed for daily living?NoHow often do you see or talk to people that you care about and feel close to? (For example: talkingto friends on the phone, visiting friends or family, going to orthodoxy or club meetings)3 to 5 times a weekpatient entered dataHow stressed are you? Stress is when someone feels tense, nervous, anxious, or can't sleep at night because their mind is troubledSomewhatpatient entered dataIn the past year have you spent more than 2 nights in a row in a residential, [place], correction center, orjuvenile correctional facility?Nopatient entered dataAre you a refugee?No patient entered dataWhat country are you from?[place] Statespatient entered dataDo you feel physically and emotionally safe where you currently live?Yes patient entered dataIn the past year, have you been afraid of your partner or ex-partner?Nopatient entered dataPRAPARE Score:4PCMH and UDS Demographics Social InfoQuestionAnswerNotesPrimary Care Medical Home QuestionsDo you have any barriers to learning?Nonepatient entered dataWhat is your preferred method of learning?Readingpatient entered dataHow often do you need to have someone help you read instructions?Neverpatient entered dataHousehold:Social Info QuestionAnswerNotesHouseholdNumber of adults in household:2 Drugs/Alcohol/Caffeine:Social InfoQuestionAnswerNotesDrugsHave you used drugs other than those for medical reasons in the past 12 months?NoCAGE-AID Questionnaire (2018 Edition)Have you ever felt that you ought to cut down on your drinking or drug use?Nopatient entered dataHave people annoyed you by criticizing your drinking or drug use?Nopatient entered dataHave you ever felt bad or guilty about your drinking or drug use?Nopatient entered dataHave you ever had a drink or used drugs first thing in the morning to steady your nerves or to get rid of a hangover?Nopatient entered dataCAGE-AID Score0 InterpretationNegativeCaffeineIntake:1-2 cups per dayTobacco Use:Social Info QuestionAnswerNotesTobacco Control (Standard)Tobacco use:NonsmokerAdditional Findings: Tobacco non-userCurrent nonsmokerAdditional DetailsCategorySocial Info OptionsDetailsMiscellaneous:Occupation:works part-timeCulture/Language BarrierNo Education LevelCollegeBarriers to LearningNoneLearning PreferenceDoing or practicing, Watching a video , Reading, Talking in a small groupHow often do you need to have someone help you read instructionsNeverSafetyPatient feels safe in relationshipsYesDrugs/Alcohol/Caffeine:Do you drink alcohol?NoSection Notes: Nutrition counseling focusin g on a low sodium and low sugar diet discussed with the patient, as well as appropriate weekly exercise and increased activity as tolerated to work towards a more optimal body mass index for improved overall health. Nutrition counseling focusin g on a low sodium and low sugar diet discussed with the patient, as well as appropriate weekly exercise and increased activity as tolerated to work towards a more optimal body mass index for improved overall health. Problems Problem Type SNOMED Code ICD Code Onset Dates Problem Status W/U Status Risk Notes Problem Morbid obesity (disorder) (19070 6002) Morbid (severe) obesity due to excess calories (E66.01) ActiveconfirmedProblemBody mass index 40+ - severely obese (308077793)Body mass index [BMI] 45.0-49.9, adult (Z68.42)ActiveconfirmedProblemBody mass index 40+ - morbidly obese (756837950)BMI 40.0-44.9, adult (Z68.41)ActiveconfirmedProblem Body mass index 40+ - severely obese (993384379)BMI 45.0-49.9, adult (Z68.42) ActiveconfirmedProblemHyperlipidaemia (05236304)Hyperlipidemia, unspecified hyperlipidemia type (E78.5)ActiveconfirmedProblemEssential hypertension (60537759)Essential hypertension (I10)Activeconfirmed Comment:Patient was advised to limit sodium intake to 1.5g per day, exercising 150 min moderate intensity every week, weight loss of at least 10% of body weight for better control of HTN Medication adherence and required labs were discussed Will order labs as needed to monitor kidney function On HCTZ spironolactone will get new BMP and Lipids Vital Signs Heart Rate 65 /min 04/18/2025 left arm. Myrna Luna 04/18/2025 10:14:40 AM EST > Temperature 98.9 degrees Fahrenheit 04/18/2025 left arm. Myrna Luna 04/18/2025 10:14:40 AM EST > Respiratory Rate 16 /min 04/18/2025 left arm. Myrna Pringle 04/18/2025 10:14:40 AM EST > Oximetry 96 % 04/18/2025 left arm. Myrna Luna 04/18/2025 10:14:40 AM EST > Blood pressure diastolic 76 mm Hg 04/18/2025 lef t arm. Myrna Luna 04/18/2025 10:14:40 AM EST > Height-cm 132.08 cm 04/18/2025 left arm. Myrna Luna 04/18/2025 10:14:40 AM EST > Weight-kg 78.56 kg 04/18/2025 left arm. Myrna Luna 04/18/2025 10:14:40 AM EST > Height 52 in 04/18/2025 left arm. Myrna Luna 04/18/2025 10:14:40 AM EST > Blood pressure systolic 123 mm Hg 04/18/2025 left arm. Myrna Luna 04/18/2025 10:14:40 AM EST > Weight 173.2 lbs 04/18/2025 left arm. Myrna Luna 04/18/2025 10:14:40 AM EST > BMI 45.03 kg/m2 04/18/2025 left arm. Myrna Luna 04/18/2025 10:14:40 AM EST > Encounters Encounter Location Date Provider Diagnosis Dental Main [address] [place], [place] [id number] 07/30/2024 Melly Rose Dental caries into dentine K02.62 [address] [place], [place] [id number] 08/09/2024 Regina Avalos Acute non-recurrent sinusitis, unspecified location J01.90 ; Morbid (severe) obesity due to excess calories E66.01 and Body mass index [BMI] 45.0-49.9, adult Z68.42 Dental Main [address] [place] [id number] 08/20/2024 Melly Rose BMI 40.0-44.9, adult Z68.41 ; Encounter for dental examination and cleaning with abnormal findings Z01.21 ; Dietary counseling Z71.3 ; Exercise counseling Z71.82 and Encounter for screening for dental disorders Z13.[address] [place] [id number] 10/15/2024 Regina Avalos Essential hypertensi on I10 ; Hyperlipidemia, unspecified hyperlipidemia type E78.5 ; Morbid (severe) obesity due to excess calories E66.01 and Body mass index [BMI] 45.0-49.9, adult Z68.42 Dental Main [address] [place] [id number] 12/06/2024 Melly Rose Encounter for screen ing for dental disorders Z13.84 and Encounter for dental examination and cleaning with abnormal findings Z01.21 Dental Main [address] [place], [place] [id number] 12/20/2024 Melly Rose Necrosis of pulp K04 .1 [address] [place], [place] [id number] 02/25/2025 Ivania Rabia Bee sting, accidenta l or unintentional, initial encounter T63.441A ; BMI 45.0-49.9, adult Z68.42 and Morbid (severe) obesity due to excess calories E66.01 Dental Main [address] [place], [place] [id number] 03/01/2025 Alicia Reed BMI 45.0-49.9, adult Z68.42 and Encounter for dental examination and cleaning with abnormal findings Z01.21 [address] [place], [place] [id number] 04/18/2025 Regina Avalos Essential hypertensi on I10 ; Hyperlipidemia, unspecified hyperlipidemia type E78.5 ; Morbid (severe) obesity due to excess calories E66.01 and Body mass index [BMI] 45.0-49.9, adult Z68.42 [address] [place], [place] [id number] 06/21/2024 Regina Avalos Screening mammogram for breast cancer Z12.31 [address] [place], [place] [id number] 08/13/2024 Reginaana laura Avalos [address] [place], [place] [id number]/01/2025Katherleisa ArechigatzDental Main [address] [place], [place] [id number]/Melly Rose Assessments Encounter Date Diagnosis (ICD Code) Assessment Notes Treatment Notes Treatment Clinical Notes Section Notes 12/06/2024 Encounter for screening for dent al disorders (ICD-10 - Z13.84) 12/20/2024Necrosis of pulp (ICD-10 - K04.1)02/25/2025MI 45.0-49.9, adult (ICD- 10 - Z68.42)02/25/2025ee sting, accidental or unintentional, initial encounter (ICD-10 - T63.441A) RX sent at this time for Prednisone and Hydroxyzine for bee sting Pt encouraged to continue icing her arm and taking Ibuprofen 800mg OTC for inflammation and pain F/U PRN, pt to call if it worsens, or has concerns for cellulitis 5BMI 45.0-49.9, adult (ICD-10 - Z68.42)04/18/2025Essential hypertension (ICD-10 - I10)HTN stable. Will continue current medications. Encouraged healthy diet and exercise. F/u 6 months & PRN06/21/2024Screening mammogram for breast cancer (ICD-10 - Z12.31)07/30/2024Dental caries into dentine (ICD-10 - K02.62)08/09/2024ute non-recurrent sinusitis, unspecified location (ICD-10 - J01.90)Due to duration of symptoms will treat with antibiotics. Discussed reassuring vs non reassuring signs related to infection and when to RTC or go to the ER. Push fluids. Tylenol and ibuprofen as needed. F/u PRN08/20/2024MI 40.0-44.9, adult (ICD-10 - Z68.41)10/15/2024Essential hypertension (ICD-10 - I10)HTN stable. Will continue current medications. Encouraged healthy diet and exercise. Will order routine blood work. F/u 6 months & PRN08/20/2024Encounter for dental examination and cleaning with abnormal findings (ICD-10 - Z01.21) 08/09/2024Morbid (severe) obesity due to excess calories (ICD-10 - E66.01)Body Mass Index: Care Instructions material was /06/2025Hyperlipidemia, unspecified hyperlipidemia type (ICD-10 - E78.5)Pt is stable on current medications. Will continue current medications. F/u 6 months & PRN03/01/2025 Encounter for dental examination and cleaning with abnormal findings (ICD-10 - Z01.21)02/25/2025Morbid (severe) obesity due to excess calories (ICD-10 - E66.01)05/05/2025Hyperlipidemia, unspecified hyperlipidemia type (ICD-10 - E78.5)Pt is stable on current medications. Will continue current medications. F/u 6 months & PRN12/06/2024Encounter for dental examination and cleaning with abnormal findings (ICD-10 - Z01.21)04/18/2025Morbid (severe) obesity due to excess calories (ICD-10 - E66.01)Body Mass Index: Care Instructions material was /27/2025ody mass index [BMI] 45.0-49.9, adult (ICD-10 - Z68.42) 08/20/2024Dietary counseling (ICD-10 - Z71.3)10/15/2024Morbid (severe) obesity due to excess calories (ICD-10 - E66.01)Body Mass Index: Care Instructions material was /05/2025ody mass index [BMI] 45.0-49.9, adult (ICD-10 - Z68.42)08/20/2024Exercise counseling (ICD-10 - Z71.82)04/18/2025ody mass index [BMI] 45.0-49.9, adult (ICD-10 - Z68.42)08/20/2024Encounter for screening for dental disorders (ICD-10 - Z13.84) Plan Of Treatment Next Appt Details Provider Name:Alicia Reed , 06/18/2025 02:15:00 PM, [address] [place] [address], [phone], Provider Name:Regina gonzalez, 10/17/2025 09:45:00 AM, [address] [place] [address], [phone], Insurance Providers Payer Name Payer Address Payer Phone Subscriber Number Group Number Insured Name Patient Relationship to Insured Coverage Start Date Coverage End Date Jose Guadalupe [facility] Dental [address] [address] [place] [phone] [id number] ANOHMAGI ADEvelina Sparrow Self - patient is the insured 5 Carine [facility] [address] [place] [id number], SusanSelf - patient is the ynwtsyk0804/13/2025DMedicaid CFC after Anthem[address] [place], [place] [id number], SusanSelf - patient is the shksrwo2304/13/2025Medicaid CFC after [address] [place], [place] [id number], SusanSelf - patient is the pelocyy4204/13/2025SFS [id number] [place] [id number], SusanSelf - patient is the rzykici5108/17/2024[facility] Dentaquest [facility] [place] [phone], SusanSelf - patient is the [id number] CFC after AmerihealthDentaquestPO [address] [place], [place] [id number], SusanSelf - patient is the Medical (General) History Medical History History ICD Code Essential hypertension Hyperlipidemia, unspecified hyperlipidemia typeE78.5Surgical History Surgery Date(Month/Year)
--- OUTSIDE RECORDS SUMMARY | 2025-06-03 08:17 | XMS_ITS | Encounter Summary ---
Author Organization [facility] Address [address] [place] [address] Care Team Providers Care Utility Mechanic Name Role Phone Unavailable Primary Care Provider Unavailabl e Encounter Details DateTypeDepartmentCare Team (Latest Contact Info)Ixtmlpheucz34/17/2025amboo flowsheet [facility] [address] [place] [phone] Yady Layne, [employer]LE [employer] CONSULTANT [address] [place] [address] Social History Tobacco UseTypesPacks/DayYears UsedDateSmoking Tobacco: Never Assessed CommentsUnknownSex and Gender InformationValueDate RecordedSex Assigned at Not on fileLegal IkiDftwaa91/11/2025 10:14 AM ESTGender IdentityNot on file Sexual OrientationNot on filedocumented as of this encounter Plan of Treatment DateTypeDepartmentCare Team (Latest Contact Info)Fuicquazelf10/22/2025 8:30 AM ESTTreatment [facility] [address] [place] [phone] Yady Layne, [employer] CONSULTANT [address] [place] [address] 06/05/2025 9:00 AM ESTTreatment [facility] [address] [place] [address] Lucio Gabriel, PT [address] [place] [address] 06/10/2025 9:00 AM ESTTreatment [facility] [address] [facility] [place] [address] Yady Layne, DENISE [address] [place] [address] 06/12/2025 9:00 AM ESTTreatment [facility] [address] [facility] [address] Lucio Gabriel, PT [address] [place] [address] documented as of this encounter Visit Diagnoses Not on filedocumented in this encounter
--- OUTSIDE RECORDS SUMMARY | 2025-06-03 08:17 | XMS_ITS | Encounter Summary ---
Author Organization [facility] Address [address] [place] [address] Care Team Providers Care Brokerage Purchase And Sale Clerk Name Role Phone Unavailable Primary Care Provider Unavailabl e Encounter Details DateTypeDepartmentCare Team (Latest Contact Info)Sqayvkqxopx60/10/2025amboo flowsheet [facility] [address] [facility] [place] [address] Lucio Gabriel, PT [address] [place] [address] Social History Tobacco UseTypesPacks/DayYears UsedDateSmoking Tobacco: Never Assessed CommentsUnknownSex and Gender InformationValueDate RecordedSex Assigned at Not on fileLegal SydUdyyml65/11/2025 10:14 AM ESTGender IdentityNot on file Sexual OrientationNot on filedocumented as of this encounter Plan of Treatment DateTypeDepartmentCare Team (Latest Contact Info)Smsdjbtekne79/22/2025 8:30 AM ESTTreatment [facility] [address] [place] [phone] Yady Layne PTA [address] [facility] [place] [address] 06/05/2025 9:00 AM ESTTreatment [facility] [address] [place] [phone] Lucio Gabriel, PT [address] [facility] [place] [address] 06/10/2025 9:00 AM ESTTreatment [facility] [address] [facility] [place] [address] Yady Layne, DENISE [address] [facility] [place] [address] 06/12/2025 9:00 AM ESTTreatment [facility] [address] [facility] [place] [address] Lucio Gabriel, PT [address] [place] [address] documented as of this encounter Visit Diagnoses Not on filedocumented in this encounter
--- OUTSIDE RECORDS SUMMARY | 2025-06-03 08:17 | XMS_ITS | Encounter Summary ---
Author Organization [facility] Address [address] [place] [address] Care Team Providers Care Emergency Room Clerk Name Role Phone Unavailable Primary Care Provider Unavailabl e Encounter Details DateTypeDepartmentCare Team (Latest Contact Info)Basnjmfnxgz37/08/2025amboo flowsheet [facility] [address] [place] [address] Desiree Alcocer PTA Social History Tobacco UseTypesPacks/DayYears UsedDateSmoking Tobacco: Never Assessed CommentsUnknownSex and Gender InformationValueDate RecordedSex Assigned at Not on fileLegal XlhHmpiok03/11/2025 10:14 AM ESTGender IdentityNot on file Sexual OrientationNot on filedocumented as of this encounter Plan of Treatment DateTypeDepartcorewell health pennock hospitalCare Team (Latest Contact Info)Zungzgwtcgx52/22/2025 8:30 AM ESTTreatment [facility] [address] [place] [address] Yady Layne, DENISE [address] [place] [address] 06/05/2025 9:00 AM ESTTreatment [facility] [address] [place] [address] Lucio Gabriel, PT [address] [place], [place] [phone] 06/10/2025 9:00 AM ESTTreatment [facility] [address] [place] [address] Yady Layne, ELEVATOR SERVICE TECHNICIAN [address] [place], [place] [phone] 06/12/2025 9:00 AM ESTTreatment [facility] [address] [place] [phone] Lucio Gabriel, PT [address] [facility] [place], [place] [phone] documented as of this encounter Visit Diagnoses Not on filedocumented in this encounter
== END 2025-06-03 08:15 | disposition home or self-care (01) ==
LOC: RAD 08:14
PROVIDERS: PCP Nurse Practitioner Family; Visit Provider Orthopaedic Surgery Orthopaedic Trauma
DX: S43.005D Unspecified dislocation of left shoulder joint, subsequent encounter (principal); S42.291D Other displaced fracture of upper end of right humerus, subsequent encounter for fracture with routine healing
CPT/HCPCS: 73030